=== PATIENT | female | born 1975 | race Caucasian/White ===

== ENCOUNTER 2025-04-29 00:55 | Emergency (ER) | payer BC, SELFPAY ==
--- OUTSIDE RECORDS SUMMARY | 2022-08-07 09:01 | XMS_ITS | Continuity of Care Document ---
Author Organization [facility] Address [address] [address] [place] [address] Phone Care Team Providers Care Field Party Manager Name Role Phone Skyla Pena CRNA Unavai lable Allergies, Adverse Reactions, Alerts Substance Reaction Status Criticality No Known Allergies Active No Inform ation WARNIN allergy(ies) could not be collected because the type is not supported. Please contact the source practice for further details. Medications Medication Instructions Dosage Effective Dates (start - stop) Status Comments ProAir HFA 90 mcg/actuation Aerosol Inhaler inhale 2 puff by inhalation route every 4 - 6 hours as needed - Active Zyrtec 10 mg tablet as needed - Active escitalopram 10 mg tablet take 1 tablet by oral route every day 10 MG - No Longer Active bupropion HCl XL 150 mg 24 hr tablet, extended release take 1 tablet by oral route every day 150 MG - No Longer Active Procedures Procedure Date Colonoscopy Flex; W/remov Les- Colonoscopy Flex; W/bx 1/mx Level Iv-surg Path Gross/micro Colonoscopy Flex; Dx (sep Pro) Colonoscopy Flex; W/remov Les- 15 Level Iv-surg Path Gross/micro [address]; Hg & Platelet Ct Autom 13 Thyroid Stim Hormone Offic Cons New/estab Mod Routine Serum Collection Advance Directives Directive Yes / No Effective Date File Name No Information Encounters Encounter Description Practice Location Reason(s) For Visit Diagnoses Date Provider Providers Copied on Encounter [facility], [address] [address], [place], [place], [id number], [place] tel:[phone] [facility] No Information 3 Becky ABERNATHY Skyla. [address] [facility], [facility] [address], [place], [id number], [place]. tel:[phone] Referring Provider: Kaye Anand MD, [address] [facility], [facility] [place], [address] . tel:[phone] [facility] [place], [address] [address], [place], [place], [id number], [place] tel:[phone] [facility] GI Symptoms or Concerns (chief complaint) Personal history of colonic polypsColorectal polyp detected on colonoscopyEncoun ter for screening for malignant neoplasm of colonBenign neoplasm of transverse colonBenign neoplasm of rectum 3 Cheng Restrepo. [address] [facility], [address], [id number], [place]. tel:[phone] Referring Provider: Referral Self, USE FOR SELF REFERRALS. [facility] [place], [address] [address], [facility], [id number], [place] tel:[phone] [facility] No Information 3 Dixon Zuniga. [address] [facility], [facility] [address], [place], [id number], [place]. tel:[phone] [facility], [address] [address], [place], [id number], [place] tel:[phone] [facility] History of adenomatous polyp of colonEncounter for screening for malignant neoplasm of colonFamily history of colonic polypsPersonal history of colonic polyps 0 Skip Osborn. [address] [facility], [facility] [address], [place], [id number], [place]. tel:[phone] Referring Provider: [place], [address] [place], [address]. tel:[phone] [facility], [address] [address], [place], [place], [id number], [place] tel:[phone] [facility] No Information 9 Carolina Cerda. [address], [id number], [place]. tel:[phone] [facility], [address] [address], [place], [id number], [place] tel:[phone] [facility] Colon polypExternal hemorrhoidEncount er for screening for malignant neoplasm of colonBenign neoplasm of ascending colonFamily history of colonic polypsResidual hemorrhoidal skin tags 5 Patrick Javed. [address] [place] [address], [id number], [place]. tel:[phone] Offic Cons New/estab Mod [facility], [address] [address], [place], [place], [id number], [place] tel:[phone] [facility] Bloating (chief complaint) Change In Bowel HabitsFlatul/eruc tat/gas Pain 3 Wilmer Wise. [address] [place] [address], [id number], [place]. tel:[phone] Family History Family Member Type Diagnosis Age At Onset First degree family history Problem (finding) No history of Cancer, colon Brother Problem (finding) Alive and well Daughter Problem (finding) Alive and well Father Problem (finding) Colon polyps First degree family history Problem (finding) No history of Ulcerative Colitis Mother Problem (finding) gallbladder disease Mother Problem (finding) diverticulitis of colon Mother Problem (finding) alcoholism Daughter Problem (finding) Asthma First degree family history Problem (finding) No history of Crohn's Mother Problem (finding) asthma Mother Problem (finding) Cirrhosis Daughter Problem (finding) Alive and well First degree family history Problem (finding) Colon Polyps Daughter Problem (finding) celiac disease Mother Problem (finding) Cirrhosis Mother Problem (finding) Thyroid disorder Immunizations Vaccine Date Status Comments SARS-COV-2 (COVID-19) vaccin e, mRNA, spike protein, LNP, preservative free, 30 mcg/0.3mL dose, hany-sucrose formulation administered Note: MII C bi- directional interface ; Source: Other Registry Pneumovax 23 administered Note: [facility] bi-d irectional interface ; Source: Other Registry SARS-COV-2 (COVID-19) vaccin e, mRNA, spike protein, LNP, preservative free, 30 mcg/0.3mL dose administered Note: [facility] bi-direct ional interface ; Source: Other Registry SARS-COV-2 (COVID-19) vaccin e, mRNA, spike protein, LNP, preservative free, 30 mcg/0.3mL dose administered Note: [facility] bi-direct ional interface ; Source: Other Registry Afluria Qd administered Note: [facility] bi-directional interface ; Source: Other Registry Afluria Qd administered Note: [facility] bi-directional interface ; Source: Other Registry Fluzone Quad 6mo or older administered Note: [facility] bi-direct ional interface ; Source: Other Registry Afluria Qd administered Note: [facility] bi-directional interface ; Source: Other Registry Fluzone Quad 6mo or older administered Note: [facility] bi-direct ional interface ; Source: Other Registry Afluria Qd administered Note: [facility] bi-directional interface ; Source: Other Registry Fluzone Quad 6mo or older administered Note: [facility] bi-direct ional interface ; Source: Other Registry tetanus toxoid, reduced diphtheria toxoid, and acellular pertussis vaccine, adsorbed administered Note: [facility] b i-directional interface ; Source: Other Registry tetanus toxoid, reduced diphtheria toxoid, and acellular pertussis vaccine, adsorbed administered Note: REX dumont i-directional interface ; Source: Other Registry Payers Payer name Insurance type Covered democrat ID Authorjeremy denton(s) Vikram Cross [facility] [id number] Social History Type Description Quantity Date Captured Comments Sex Female Smoking Status No Information Chief Complaint And Reason For Visit No Information Reason For Referral Reason For Referral No Information History Of Present Illness Encounter Date Complaint History Of Prese nt Illness GI Symptoms or Concerns Functional Status Date Functional Assessmen t No Information Instructions Date Instruction Additional Infor mation Colon Polyps Related to Color ectal polyp detected on colonoscopy Diverticulosis/Diverticulitis Re lated to Colorectal polyp detected on colonoscopy High Fiber Diet Related to Color ectal polyp detected on colonoscopy Colon Cancer Prevention Related to Colorectal polyp detected on colonoscopy Hemorrhoids Related to Histo ry of adenomatous polyp of colon Colon Cancer Prevention Related to Colon polyp Colon Polyps Related to Colon polyp Hemorrhoids Related to Colon polyp High Fiber Diet Related to Colon polyp Assessments Type Assessment Date No Information Patient Care Teams Name Effective Dates (start - stop) Status Members No Information
[2025-04-29 01:00] VITALS: BP 115/74; PULSE 74; RESP 18; TEMP 36.9; O2SAT 99; BMI 24.0
--- NOTE | 2025-04-29 01:30 | CRLHL7_ITS ---
For Patients: As a result of the Cures Act, medical imaging exams and procedure reports are released immediately into your electronic medical record. You may view this report before your referring provider. If you have questions, please contact your health care provider. Indication: Pain x 10 days. Technique: Right shoulder 3 views. Comparison: None. Findings: Bones: Alignment is normal. No acute fracture or suspicious bone lesion. Joint spaces: Unremarkable. Soft tissues: 1.3 cm focus of rotator cuff calcific tendinopathy. Impression: 1. 1.3 cm focus of rotator cuff calcific tendinopathy. 2. No acute bony abnormality. Dictated by Alejandro Muñoz MD @ 04/29/2025 2:09:43 AM (Electronically Signed)
--- NOTE | 2025-04-29 01:32 | ED_ITS ---
HPI - Extremity Problem General Date Seen: 04/29/25 Chief complaint: Shoulder Injury/Pain Stated complaint: right shoulder pain Time Seen by Provider: 04/29/25 01:00 Source: patient Mode of arrival: ambulatory Limitations: no limitations History of Present Illness HPI Narrative: Patient is a 49-year-old female was in her usual state of good health until 10 or 11 days ago when she began having right shoulder pain without any specific injury. She does do a lot of driving and lifting with her right arm and thought that she had just strained it. She took some ibuprofen and has been to the chiropractor on three separate occasions. Initially it seemed like things were getting better but now for the past three days the pain is much worse. There is no neck pain. There is no radiation of pain from her neck. For the past two nights the pain has been so severe that she cannot sleep despite ibuprofen and Aleve. No previous injury to this arm. She is having difficulty finding a comf ortable position. If she supports the weight of her arm and does not move the pain is tolerable. Any movement causes severe pain. Related Data Previous Rx's ?Medication ?Instructions ?Recorded oxycodone-acetaminophen 5 mg-325 1 - 2 tab PO Q6H PRN pain #20 tabs 04/29/25 mg tablet (Percocet) Allergies Allergy/AdvReac Type Severity Reaction Status Date / Time No Known Drug Allergies Allergy Verified 04/29/25 01:01 Review of Systems Narrative: Review of systems is outlined above otherwise noted to be negative. PFSH PFSH Social History Smoking Status: Never smoker Second hand tobacco smoke exposure: No How often do you have a drink containing alcohol: never AUDIT-C Alcohol total score: 0 Non-prescribed substance use: denies use Exam Narrative: Exam Narrative: Objective: Vitals noted. No skin rashes. Full range of motion of the cervical spine. Normal neurologic exam. There are no areas of bony tenderness. She is uncomfortable over the bicep tendon but it is intact. The worst pain is lateral to that. She has severe pain with any active attempts at motion. Even with gentle passive range of motion it brings tears. Internal and external rotation are the worst movements. Forward flexion of the shoulder and the elbow are minimally tender. Const: Vital Signs, click to edit/add: Vital Signs - 24 hr 04/29/25 01:00 Temperature 98.5 F Pulse Rate [Right Pulse Oximeter] 74 Respiratory Rate 18 Blood Pressure [Ri ght Upper Arm] 115/74 Pulse Oximetry 99 Oxygen Delivery Me thod Room Air Course Course ED Course: Patient seen and examined. X-ray of the right shoulder is negative. Reevaluation(s) Reevaluation #1: We discussed options for treatment in she is given Toradol 30 mg IM and Percocet two tablets orally. She is discharged home in the care of her . Vital Signs Vital signs: Initial Vital Signs Temperature 98.5 F 04/29/25 01:00 Temperature Source Temporal Artery Scan 04/29/25 01:00 Pulse Rate 74 04/29/25 01:00 Respiratory Rate 18 04/29/25 01:00 Blood Pressure 115/74 04/29/25 01:00 Blood Pressure Mean 87 04/29/25 01:00 Blood Pressure Position Sitting 04/29/25 01:00 Pulse Oximetry 99 04/29/25 01:00 Oxygen Delivery Method Room Air 04/29/25 01:00 Vital Signs Temperature 98.5 F 04/29/25 01:00 Pulse Rate 74 04/29/25 01:00 Respiratory Rate 18 04/29/25 01:00 Blood Pressure 115/74 04/29/25 01:00 Pulse Oximetry 99 04/29/25 01:00 Oxygen Delivery Method Room Air 04/29/25 01:00 Temperature 98.5 F 04/29/25 01:00 Pulse Rate 74 04/29/25 01:00 Respiratory Rate 18 04/29/25 01:00 Blood Pressure 115/74 04/29/25 01:00 Pulse Oximetry 99 04/29/25 01:00 Oxygen Delivery Method Room Air 04/29/25 01:00 Discharge Plan Discharge Clinical Impression: Right rotator cuff tendinitis Patient Disposition: Home, Self-Care Condition: Improved Instructions: Rotator Cuff Tendinitis (ED) Additional Instructions: Rest, ice, sling if needed, ibuprofen 800 mg 3 times daily with food. Percocet 1-2 every 6 hours as needed for refractory pain. Follow-up with your PCP next week for a recheck. Nobody buys lawrence on [employer]. Prescriptions: New oxycodone-acetaminophen [Percocet] 5-325 mg tablet 1 - 2 tab PO Q6H PRN (Reason: pain) Qty: 20 0RF Follow Up/Referrals: Provider,Not a Local [Primary Care Provider, Family Practice] Stand Alone Forms: Adimabth Info Instructions
--- OUTSIDE RECORDS SUMMARY | 2025-04-29 01:42 | XMS_ITS | Encounter Summary ---
Author Organization [place] Address [address] [place] [address] Care Team Providers Care Sheep Shearer Name Role Phone Sissy Robison MD Primary Care Provider Rut Carr APRN TOUCH UP WORKER Unavailable [phone] Valencia Mccormick DO Unavailable [phone] [facility] Unavailable [phone] Encounter Details Date Type Department Care Team (Late st Contact Info) Description 10/01/2024 [facility] Medical Advice [facility] [address], [address] [place] [address] Valencia Mccormick DO [address] [place] [address] Social History Tobacco Use Types Packs/Day Years Used Date Smoking Tobacco: Former Cigarettes 0.5 13 0 06/30/1997 - 06/30/2010 Passive Smoke Exposure: Past Smokeless Tobacco: Never Alcohol Use Standard Drinks/Week Comments Yes 0 (1 standard drink = 0.6 oz pur e alcohol) 1/2 drinks per week only Social Connection and Isolation Panel Answer Date Recorded Frequency of Communication with Friends and Fami ly Not on file 03/01/2024 How often do you get together with friends or re latives? Once a week 03/01/2024 Attends Mosque Services Not on file 03/01 Active Member of Clubs or Organizations Not on f ile 03/01/2024 Attends Club or Organization Meetings Not on romie e 03/01/2024 Marital Status Not on file 03/01/2024 PHQ-2 Answer Date Recorded PHQ-2 Score 0 08/24/2024 [facility] Occupational Stress Questionnaire Answer Date Recorded Do you feel stress - tense, restless, nervous, or anxious, or unable to sleep at night because your mind is troubled all the time - these days? Only a little 03/01/2024 Exercise Vital Sign Answer Date Recorde d On average, how many days pe r week do you engage in moderate to strenuous exercise (like a brisk walk)? 2 days 03/01/2024 On average, how many minutes do you engage in exercise at this level? 20 min 03/01/2024 Adolescent Education Answer Date Record ed Getting School Help Needed Not on file 04/09 Food Insecurity Answer Date Recorded Within the past 12 months, d id you worry that your food would run out before you got money to buy more? No 03/01/2024 Within the past 12 months, d id the food you bought just not last and you didn t have money to get more? No 03/01/2024 Housing Stability Answer Date Recorded Do you have housing? (Rob g is defined as stable permanent housing and does not include staying outside in a car, in a tent, in an abandoned building, in an overnight nursing home, or couch-surfing.) Yes 03/02/2024 Are you worried about losing your housing? No 03/02/2024 Financial Resource Strain Answer Date R ecorded Within the past 12 months, h ave you or your family members you live with been unable to get utilities (heat, electricity) when it was really needed? No 03/01/2024 Transportation Needs Answer Date Record ed Within the past 12 months, h as lack of transportation kept you from medical appointments, getting your medicines, non-medical meetings or appointments, work, or from getting things that you need? No 03/01/2024 Interpersonal Safety Answer Date Record ed Do you feel physically and e motionally safe where you currently live? Yes 08/24/2024 Within the past 12 months, h ave you been hit, slapped, kicked or otherwise physically hurt by someone? No 08/24/2024 Within the past 12 months, h ave you been humiliated or emotionally abused in other ways by your partner or ex-partner? No 08/24/2024 Comments No Sex and Gender Information Value Date Recorded Sex Assigned at Female 05/17/2019 12:19 PM MILITARY EXCHANGE WIRELESS MANAGER Legal Sex Female 3:39 AM MILITARY EXCHANGE WIRELESS MANAGER Gender Identity Female 05/17/2019 12:19 PM MILITARY EXCHANGE WIRELESS MANAGER Sexual Orientation Straight 05/17/2019 12 :19 PM MILITARY EXCHANGE WIRELESS MANAGER documented as of this encounter Plan of Treatment Not on file documented as of this encounter Visit Diagnoses Not on filedocumented in this encounter Additional Health Concerns Assessment Noted Time PHQ-9 Depression Total Score: 5 04/11/20 9:20 AM CDT documented as of this encounter Care Teams Sheep Shearer Relationship Specialty [place] [address] [place] [address] PCP - General Family Practice 12/18/15 01/04/25 Rut Carr APRN TOUCH UP WORKER [address] [place] [address] Assigned PCP 07/06/22 Valencia Mccormick DO [address] [place] [address] Assigned Neuroscience Provider 06/21/24 Nat Nunes MD [address] [facility] [address] [place], [place] [address] Assigned Surgical Provider 09/19/24 documented as of this encounter
--- OUTSIDE RECORDS SUMMARY | 2025-04-29 01:42 | XMS_ITS | Encounter Summary ---
Author Organization [place] Address [address] [place] [address] Care Team Providers Care Manufacturing Industrial Engineer Name Role Phone Rut Carr APRN EVIDENCE TECHNICIAN Unavailable Valencia Mccormick DO Unavailable [phone] Nat Nunes MD Unavailable [phone] Reason for Visit * Reason Comments Medication Refill Encounter Details Date Type Department Care Team (Late st Contact Info) Description 04/24/2025 Refill [facility] [address] [place] [address] Rut Carr APRN EVIDENCE TECHNICIAN [address] [place] [address] Medication Refill Social History Tobacco Use Types Packs/Day Years [...] re latives? Once a week 03/01/2024 Attends Quaker Services Not on file 03/01 Active Member of Clubs or Organizations Not on f ile 03/01/2024 Attends Club or Organization Meetings Not on romie e 03/01/2024 Marital Status Not on file 03/01/2024 PHQ-2 Answer Date Recorded PHQ-2 Score 0 08/24/2024 [facility] - Occupational Stress Questionnaire Answer Date Recorded [...] in an abandoned building, in an overnight longterm, or couch-surfing.) Yes 03/02/2024 Are you worried [...] Sex Assigned at Female 05/17/2019 12:19 PM RADIATOR MECHANIC Legal Sex Female 3:39 AM RADIATOR MECHANIC Gender Identity Female 05/17/2019 12:19 PM RADIATOR MECHANIC Sexual Orientation Straight 05/17/2019 12 :19 PM RADIATOR MECHANIC documented as of this encounter Miscellaneous Notes * Telephone Encounter - Mark Siegel RN - 04/25/2025 9:08 AM CDT [place] refill sent. Needs appointment, note sent to pharmacy to inform patient per protocol. documented in this encounter Plan of Treatment Not on file documented as of this encounter Visit Diagnoses Diagnosis Mild intermittent asthma without complication Unspecified asthma Seasonal allergic rhinitis due to pollen documented in this encounter Additional Health Concerns Assessment Noted Time PHQ-9 Depression Total Score: 5 04/11/20 25 9:20 AM CDT documented as of this encounter Care Teams Manufacturing Industrial Engineer Relationship Specialty Start Date End Date Rut Carr APRN CNP [address] [place] [address] Assigned PCP 07/06/22 Valencia Mccormick DO [address] [place] [address] Assigned Neuroscience Provider 06/21/24 [facility] [address] [facility] [address] [place] [address] Assigned Surgical Provider 09/19/24 documented as of this encounter
--- OUTSIDE RECORDS SUMMARY | 2025-04-29 01:42 | XMS_ITS | Encounter Summary ---
Author Organization [place] Address [address] [place] [address] Care Team Providers Care Lawn Care Technician Name Role Phone Sissy Robison MD Primary Care Provider + Rut Carr APRN RADIATION THERAPIST Unavailable + Sissy Robison MD Unavailable + Rut Carr APRN RADIATION THERAPIST Unavailable + Sissy Robison MD Unavailable + Cristina Ace DO Unavailable [phone] Rut Carr APRN RADIATION THERAPIST Unavailable + Sissy Robison MD Unavailable + Alejandro Grimes DPM Unavailable [phone] Rut Carr APRN RADIATION THERAPIST Unavailable + Alejandro Grimes DPM Unavailable + [phone] Valencia Mccormick DO Unavailable [phone] Nat Nunes MD Unavailable [phone] Encounter Details Date Type Department Care Team (Late st Contact Info) Description 05/02/2017 [facility] [address] [id number] Xenia Flores Patel Social History Tobacco Use Types Packs/Day Years Used Date Smoking Tobacco: Never Smokeless Tobacco: Never Alcohol Use Standard Drinks/Week Comments Yes 0 (1 standard drink = 0.6 oz pur e alcohol) occasionally Comments No Sex and Gender Information Value Date Recorded Sex Assigned at Female 05/17/2019 12:19 PM BRAKE LINER Legal Sex Female 3:39 AM BRAKE LINER Gender Identity Female 05/17/2019 12:19 PM BRAKE LINER Sexual Orientation Straight 05/17/2019 12 :19 PM BRAKE LINER documented as of this encounter Plan of Treatment Not on file documented as of this encounter Visit Diagnoses Not on filedocumented in this encounter Additional Health Concerns Assessment Noted Time PHQ-9 Depression Total Score: 1 07/30/19 17 7:12 AM BRAKE LINER documented as of this encounter Care Teams Lawn Care Technician Relationship Specialty [place] [address] [address] [address] PCP - General Family Practice 12/18/15 01/04/25 Rut Carr APRN RADIATION THERAPIST [address] [address] [address] PCP - Assigned PCP 05/03/18 09/01/18 [place] [address] [address] [address] PCP - Assigned PCP 03/29/18 05/02/18 Rut Carr APRN RADIATION THERAPIST [address] [address] [address] Assigned PCP 05/03/18 10/30/19 [place] [address] [address] [address] Assigned PCP 10/31/19 10/14/20 Cristina Ace DO [address] [place] [address] Assigned OBGYN Provider 04/21/20 2/08/29 3 Rut Carr APRN RADIATION THERAPIST [address] [place] [address] Assigned PCP 10/15/20 01/11/21 [place] [address] [place] [address] Assigned PCP 01/12/21 07/05/22 Alejandro Grimes DPM [address] [place] [address] Assigned Musculoskeletal Provider 04/29/21 08/02/22 Rut Carr APRN RADIATION THERAPIST [address] [place] [address] Assigned PCP 07/06/22 Alejandro Grimes DPM [address] [place], [place] [address] Assigned Surgical Provider 08/03/22 Valencia Mccormick DO [address] [place], [place] [address] Assigned Neuroscience Provider 06/21/24 Nat Nunes MD [address] [place], [place] [address] Assigned Surgical Provider 09/19/24 documented as of this encounter
--- OUTSIDE RECORDS SUMMARY | 2025-04-29 01:43 | XMS_ITS | Encounter Summary ---
Author Organization [facility] Address [address] [place] [address] Care Team Providers Care Merchandise Handler Name Role Phone Sissy Robison MD Primary Care Provider + Rut Carr APRN CUSTOMER CONSULTANT Unavailable + Sissy Robison MD Unavailable + Cristina Ace DO Unavailable [phone] Rut Carr APRN CUSTOMER CONSULTANT Unavailable + Sissy Robison MD Unavailable + Alejandro Grimes DPM Unavailable + [phone] Rut Carr APRN CUSTOMER CONSULTANT Unavailable + CornelioAlejandro galan DPM Unavailable + [phone] Valencia Mccormick DO Unavailable [phone] Nat Nunes MD Unavailable [phone] Encounter Details Date Type Department Care Team (Late st Contact Info) Description 09/17/2018 MyC Medical Advice [facility] [address] [facility], [address] [place] [address] Hilary Moya, DIMITRY Social History Tobacco Use Types Packs/Day Years Used Date Smoking Tobacco: Never Smokeless Tobacco: Never Alcohol Use Standard Drinks/Week Comments Yes 0 (1 standard drink = 0.6 oz pur e alcohol) occasionally PHQ-2 Answer Date Recorded PHQ-2 Score 0 07/07/2018 Comments No Sex and Gender Information Value Date Recorded Sex Assigned at Female 05/17/2019 12:19 PM ELECTRONICS UTILITY WORKER Legal Sex Female 3:39 AM ELECTRONICS UTILITY WORKER Gender Identity Female 05/17/2019 12:19 PM ELECTRONICS UTILITY WORKER Sexual Orientation Straight 05/17/2019 12 :19 PM ELECTRONICS UTILITY WORKER documented as of this encounter Plan of Treatment Not on file documented as of this encounter Visit Diagnoses Not on filedocumented in this encounter Additional Health Concerns Assessment Noted Time PHQ-9 Depression Total Score: 0 09/19/19 19 7:06 AM CDT documented as of this encounter Care Teams Merchandise Handler Relationship Specialty [place] [id number] [address] [address] PCP - General Family Practice 12/18/15 01/04/25 Rut Carr APRN CUSTOMER CONSULTANT [address] [address] [address] Assigned PCP 05/03/18 10/30/19 [place] [address] [address] [address] Assigned PCP 10/31/19 10/14/20 Cristina Ace DO [address] [place] [address] Assigned OBGYN Provider 04/21/20 3 Rut Carr APRN CUSTOMER CONSULTANT [address] [address] [address] Assigned PCP 10/15/20 01/11/21 [place] [address] [place] [address] Assigned PCP 01/12/21 07/05/22 Ale[place] Grimes DPM [address] [place] [address] Assigned Musculoskeletal Provider 04/29/21 08/02/22 Rut Carr APRN CUSTOMER CONSULTANT [address] [place] [address] Assigned PCP 07/06/22 Alejandro Grimes DPM [address] [place] [address] Assigned Surgical Provider 08/03/22 Valencia Mccormick DO [address] [place], [place] [address] Assigned Neuroscience Provider 06/21/24 Nat Nunes MD [address] [facility] [address] [place], [place] [address] Assigned Surgical Provider 09/19/24 documented as of this encounter
--- OUTSIDE RECORDS SUMMARY | 2025-04-29 01:43 | XMS_ITS | Encounter Summary ---
Author Organization [facility] Address [address] [place] [address] Care Team Providers Care Legal Technician Name Role Phone Sissy Robison MD Primary Care Provider Rut Carr APRN NUCLEAR ENGINEER Unavailable [phone] Valencia Mccormick DO Unavailable [phone] Nat Nunes MD Unavailable [phone] Encounter Details Date Type Department Care Team (Late st Contact Info) Description 10/30/2023 MyC Medical Advice [address] [address] Gladys Haley Social History Tobacco Use Types Packs/Day Years Used Date Smoking Tobacco: Former Cigarettes 0.5 13 0 06/30/1997 - 06/30/2010 Smokeless Tobacco: Never Alcohol Use Standard Drinks/Week Comments Yes 0 (1 standard drink = 0.6 oz pur e alcohol) 1/2 drinks per week only PHQ-2 Answer Date Recorded PHQ-2 Score 0 10/24/2023 Adolescent Education Answer Date Record ed Getting School Help Needed Not on file 04/09 Comments No Sex and Gender Information Value Date Recorded Sex Assigned at Female 05/17/2019 12:19 PM DECISION SUPPORT ANALYST Legal Sex Female 3:39 AM DECISION SUPPORT ANALYST Gender Identity Female 05/17/2019 12:19 PM DECISION SUPPORT ANALYST Sexual Orientation Straight 05/17/2019 12 :19 PM DECISION SUPPORT ANALYST documented as of this encounter Plan of Treatment Not on file documented as of this encounter Visit Diagnoses Not on filedocumented in this encounter Additional Health Concerns Assessment Noted Time PHQ-9 Depression Total Score: 5 04/11/20 25 9:20 AM CDT documented as of this encounter Care Teams Legal Technician Relationship Specialty [place] [address] [place] [address] PCP - General Family Practice 12/18/15 01/04/25 Rut Carr APRN NUCLEAR ENGINEER [address] [address] [address] Assigned PCP 07/06/22 Valencia Mccormick DO [address] [place], [place] [address] Assigned Neuroscience Provider 06/21/24 Nat Nunes MD [address] [facility] [address] [place], [place] [address] Assigned Surgical Provider 09/19/24 documented as of this encounter
--- OUTSIDE RECORDS SUMMARY | 2025-04-29 01:43 | XMS_ITS | Encounter Summary ---
Author Organization [facility] Address [address] [place] [address] Care Team Providers Care Automobile Or Truck Rental Dispatcher Name Role Phone Sissy Robison MD Primary Care Provider + Rut Carr APRN GOLF BALL TRIMMER Unavailable + Sissy Robison MD Unavailable + Cristina Ace DO Unavailable [phone] Rut Carr APRN GOLF BALL TRIMMER Unavailable + Sissy Robison MD Unavailable + Alejandro Grimes DPM Unavailable + [phone] Rut Carr APRN GOLF BALL TRIMMER Unavailable + CornelioAlejandro galan DPM Unavailable + [phone] Valencia Mccormick DO Unavailable [phone] Nat Nunes MD Unavailable [phone] Encounter Details Date Type Department Care Team (Late st Contact Info) Description 05/11/2019 MyC Medical Advice [address] [id number] Flores Michaels Social History Tobacco Use Types Packs/Day Years Used Date Smoking Tobacco: Never Smokeless Tobacco: Never Alcohol Use Standard Drinks/Week Comments Yes 0 (1 standard drink = 0.6 oz pur e alcohol) occasionally PHQ-2 Answer Date Recorded PHQ-2 Score 0 07/07/2018 Comments No Sex and Gender Information Value Date Recorded Sex Assigned at Female 05/17/2019 12:19 PM PRODUCTION ESTIMATOR Legal Sex Female 3:39 AM PRODUCTION ESTIMATOR Gender Identity Female 05/17/2019 12:19 PM PRODUCTION ESTIMATOR Sexual Orientation Straight 05/17/2019 12 :19 PM PRODUCTION ESTIMATOR documented as of this encounter Plan of Treatment Not on file documented as of this encounter Visit Diagnoses Not on filedocumented in this encounter Additional Health Concerns Assessment Noted Time PHQ-9 Depression Total Score: 0 09/19/19 19 7:06 AM CDT documented as of this encounter Care Teams Automobile Or Truck Rental Dispatcher Relationship Specialty [place] [address] [address] [address] PCP - General Family Practice 12/18/15 01/04/25 Rut Carr APRN GOLF BALL TRIMMER [address] [address] [address] Assigned PCP 05/03/18 10/30/19 [place] [address] [address] [address] Assigned PCP 10/31/19 10/14/20 Cristina Ace DO [address] [place] [address] Assigned OBGYN Provider 04/21/20 3 Rut Carr APRN GOLF BALL TRIMMER [address] [address] [address] Assigned PCP 10/15/20 01/11/21 [place] [address] [place] [address] Assigned PCP 01/12/21 07/05/22 Alejandro Grimes DPM [address] [place] [address] Assigned Musculoskeletal Provider 04/29/21 08/02/22 Rut Carr APRN GOLF BALL TRIMMER [address] [place] [address] Assigned PCP 07/06/22 Alejandro Grimes DPM [address] [place] [address] Assigned Surgical Provider 08/03/22 Valencia Mccormick DO [address] [place], [place] [address] Assigned Neuroscience Provider 06/21/24 Nat Nunes MD [address] [facility] [address] [place], [place] [address] Assigned Surgical Provider 09/19/24 documented as of this encounter
--- OUTSIDE RECORDS SUMMARY | 2025-04-29 01:43 | XMS_ITS | Encounter Summary ---
Author Organization [facility] Address [address] [place] [address] Care Team Providers Care Acetylene Operator Name Role Phone Sissy Robison MD Primary Care Provider + Rut Carr APRN INTELLECTUAL PROPERTY COUNSEL Unavailable + Sissy Robison MD Unavailable + Rut Carr APRN INTELLECTUAL PROPERTY COUNSEL Unavailable + Sissy Robison MD Unavailable + Cristina Ace DO Unavailable [phone] Rut Carr APRN INTELLECTUAL PROPERTY COUNSEL Unavailable + Sissy Robison MD Unavailable + Alejandro Grimes DPM Unavailable + [phone] Rut Carr APRN INTELLECTUAL PROPERTY COUNSEL Unavailable + Alejandro Grimes DPM Unavailable + [phone] Valencia Mccormick DO Unavailable [phone] Nat Nunes MD Unavailable [phone] Encounter Details Date Type Department Care Team (Late st Contact Info) Description 02/18/2018 [facility] [address] [phone] Rayna Melton Social History Tobacco Use Types Packs/Day Years Used Date Smoking Tobacco: Never Smokeless Tobacco: Never Alcohol Use Standard Drinks/Week Comments Yes 0 (1 standard drink = 0.6 oz pur e alcohol) occasionally Comments No Sex and Gender Information Value Date Recorded Sex Assigned at Female 05/17/2019 12:19 PM JORDAN WORKER Legal Sex Female 3:39 AM JORDAN WORKER Gender Identity Female 05/17/2019 12:19 PM JORDAN WORKER Sexual Orientation Straight 05/17/2019 12 :19 PM JORDAN WORKER documented as of this encounter Plan of Treatment Not on file documented as of this encounter Visit Diagnoses Not on filedocumented in this encounter Additional Health Concerns Assessment Noted Time PHQ-9 Depression Total Score: 1 07/30/19 17 7:12 AM JORDAN WORKER documented as of this encounter Care Teams Acetylene Operator Relationship Specialty [place] [address] [address] [address] PCP - General Family Practice 12/18/15 01/04/25 Rut Carr APRN INTELLECTUAL PROPERTY COUNSEL [address] [address] [address] PCP - Assigned PCP 05/03/18 09/01/18 [place] [address] [address] [address] PCP - Assigned PCP 03/29/18 05/02/18 Rut Carr APRN INTELLECTUAL PROPERTY COUNSEL [address] [address] [address] Assigned PCP 05/03/18 10/30/19 [place] [address] [address] [address] Assigned PCP 10/31/19 10/14/20 Cristina Ace DO [address] [place] [address] Assigned OBGYN Provider 04/21/20 2/08/29 3 Rut Carr APRN INTELLECTUAL PROPERTY COUNSEL [address] [place] [address] Assigned PCP 10/15/20 01/11/21 [place] [address] [place] [address] Assigned PCP 01/12/21 07/05/22 [place] [address] [place] [address] Assigned Musculoskeletal Provider 04/29/21 08/02/22 Rut Carr APRN INTELLECTUAL PROPERTY COUNSEL [address] [place] [address] Assigned PCP 07/06/22 Alejandro Grimes DPM [address] [place], [place] [address] Assigned Surgical Provider 08/03/22 Valencia Mccormick DO [address] [place], [place] [address] Assigned Neuroscience Provider 06/21/24 Nat Nunes MD [address] [place], [place] [address] Assigned Surgical Provider 09/19/24 documented as of this encounter
--- OUTSIDE RECORDS SUMMARY | 2025-04-29 01:43 | XMS_ITS | Clinical Summary ---
Author Organization [facility] Address [address] [place] [address] Care Team Providers Care Product Safety Consultant Name Role Phone [facility] Primary Care Provider Allergies No known active allergies Medications ZYRTEC 10 MG TAB take 1 tablet (10 mg) by oral route once daily 0 9 Active multivitamin (MVI) tablet Take 1 tablet by mouth once daily. 0 0 Active albuterol HFA (PROAIR HFA) 90 mcg/actuation inhalerIndication s:Unspecified asthma(493.90) Inhale 1 Puff by mouth every 4 hours if needed. 1 Inhaler 4 2 Active albuterol-ipratro pium (DUONEB) (2.5-0.5 mg) in 3 mL NEBULIZATION solutionIndicatio ns:Asthma exacerbation, unspecified asthma severity Inhale 3 mL via a nebulizer 4 times daily if needed for Shortness Of Breath or Wheezing. 1 box 0 5 Active NebulizerIndicati ons:Asthma exacerbation, unspecified asthma severity Nebulizer, neb kit, neb cup and mask. Medication: Duo neb For home use. 1 Device 0 5 Active FLUoxetine (PROZAC) 10 mg capsuleIndication s:PMS (premenstrual syndrome) TAKE 1 CAPSULE BY MOUTH EVERY MORNING 90 capsule 1 6 Active Active Problems Problem Noted Date Diagnosed Date Moderate cervical dysplasia, histologically conf irmed 03/19/2015 Overview (04/07/2015): LEEP done 08/19/14: path showed left LEEP- CIN2 with endocervical margin + for CIN1 at 3-6:00, right LEEP with CIN1, margins negative and ECC negative. 03/17/2015 NIL pap & [place]: negative biopsy, insufficient ECC Plan per provider: Plan: 1. Repeat Pap with HPV and ECC in 6 months. Routine general medical exam ination at a health care facility 06/10/2009 Overview (09/04/2012): Pap: 11/2006 ascus; 04/2007 epithelial cell abnormality; 08/04/2008-neg, 04/03/2010- neg Pap 04/09 LSIL and no colpo done; Pap LSIL 04/10; colpo done 04/28/12 and was normal and ECC negative. Last Mammo: normal 04/09 Last Colonoscopy: never Last Dexa: never Last Lipids: 2005 Unspecified asthma(493.90) 06/10/2009 Seasonal allergies 06/10/2009 Other acne 02/16/2009 Overview (06/10/2009): On ceftin daily Immunizations Immunization Administration Dates Next Due Influenza, IIV3 (Age >=3 years) 04/15/2012,04/10,04/03/2010 Influenza, IIV4 04/08/2014 Tdap 04/08/2014,12/20/2005 Family History Medical History Relation Name Comments Other Father precancerous co lazaro polyps age 45 Diabetes Maternal Grandmother Diabetes Mother Cancer-colon Paternal Uncle age at dx 50 Cancer-breast Other MATERNAL GREAT GM at age 70 Cancer-ovarian No Family History Relation Name Status Comments Father Maternal Grandmother Mother Paternal Uncle Other MATERNAL GREAT GM Social History Tobacco Use Types Packs/Day Years Used Date Smoking Tobacco: Never Smokeless Tobacco: Never Alcohol Use Standard Drinks/Week Comments No 0.8 (1 standard drink = 0.6 oz p ure alcohol) occ Comments No Sex and Gender Information Value Date Recorded Sex Assigned at Not on file Legal Sex Female 7:34 AM RING SPINNER Gender Identity Not on file Sexual Orientation Not on file Occupation Industry Job Start Date Job End Date SALES Not on file Not on file Not on file Not on file Not on file Not on file Not on file Obstetrics History Para Term AB IAB SAB Ectopic Multiple Livin g Live Births 3 3 3 4 3 Date Outcome GA Total Labor Labor/2nd/3rd Weight Sex Type Anes PTL Ruba A1 A5 Name Clin 2000 Term 40w 0d 3.12 kg (6 lb 14 oz) F Vag-S pont Livin g Heike Vivas l Delivery Location:[facility] 2003 Term 40w 0d 3.18 kg (7 lb) F Vag-S pont Livin g Payton Ho Delivery Location:[facility] 2013 Term 37w 1d 3.43 kg (7 lb 9 oz) F Vag Livin g 9 9 [place] Delivery Location:[facility] Comments Stepdaughter born 2000- Juany ey Last Filed Vital Signs Vital Sign Reading Time Taken Comments Blood Pressure 120/60 03/17/2015 3:14 PM CDT Pulse 96 11/03/2014 9:01 AM CDT Temperature 36.6 C (97.8 F) 11/03/2014 9:01 AM CDT Respiratory Rate 18 11/03/2014 9:01 AM CDT Oxygen Saturation 99% 11/03/2014 9:01 AM CDT Inhaled Oxygen Concentration - - Weight 65.3 kg (144 lb) 03/17/2015 3:14 PM CDT Height 167 cm (5' 5.75) 10/27/2014 2:36 PM CDT Body Mass Index 23.42 10/27/2014 2:36 PM CDT Plan of Treatment Health Maintenance Due Date Last Done Comments Depression screening for age 12+ 1986 BMI (ht and wt on same day) for age 18+ 1992 Hepatitis C screening for ag e 18-79 1992 Hepatitis B series for 19+ ( 1 of 3 - 19+ 3-dose series) 1993 Pap test for age 21-65 03/17/2018 5, 06/27/2014, 06/27/2014, Additional history exists Lipids for age 45-75 09/20/2019 04/10/2011 Mammogram for age 45-75 09/20/2019 07/30/2013, 04/17 Tetanus booster 04/08/2024 04/08/2014, 12/20/2005 Pneumococcal series for age 50+ (1 of 1 - PCV) 2024 Zoster (shingles) series for age 50+ (1 of 2) 2024 Influenza Vaccine (#1) 2025 4, 04/15/2012, 04/10/2011, Additional history exists Colonoscopy through age 75 05/05/2025 05/05/2015 RSV vaccine for adults or (1 - 1-dose 75+ series) 2049 HIV for age 15-65 Completed 10/26/2013 Procedures Procedure Name Priority Date/Time Associated Diagnosis Comments SCAN-COLONOSCOPY 05/05/2015 1:30 PM RING SPINNER MARINE FIRE FIGHTER THIN PREP PAP DIAGNOSTIC IMAGED Routine 03/17/2015 4:14 PM CDT Severe cervical dysplasia, histologically confirmed ANTI HIV 1/2 Routine 10/26/2013 10:47 AM CDT AMA (advanced maternal age) multigravida 35+ (HC) XR MAMMO BILAT DIAG FFDM (IA) Routine 07/30/2013 10:38 AM RING SPINNER Breast lump Breast pain LDL CHOLESTEROL,DIRECT Routine 04/10/2011 11:26 AM CDT Healthcare maintenance from Last 3 Months or Most Recently Relevant to Health Maintenance Results * SCAN-COLONOSCOPY (05/05/2015 1:30 PM RING SPINNER) Narrative Transcriptions Tello Nguyen MD - 05/05/2015 12:42 PM CST [facility] [address], [address], [place] [address] Patient Name: Jessica Sanchez Gender: Female Exam Date: 05/05/2015 Visit Number: [id number] Age: 39 Years Date of : 1975 Attending MD: Tello Nguyen MD Medical Record#: [id number] ----- Procedure: Colonoscopy Indications: Family history of polyps in patient's father. Agediagnosed: 50-59. Referring MD: Amaris Ho MD Primary MD: Amaris Ho MD Medications: Intra Procedure Medications: Received MAC sedation per anesthesia provider Complications: Procedure: An examination of the heart and lungs was performed and found to be withinacceptable limits. The patient was therefore deemed a reasonablecandidate for endoscopy and {cons_sedation: Unexpected Value} sedation. The risks and benefits of the procedure were explained to the patient.After obtaining informed consent, MAC sedation was administered peranesthesia provider and I passed the scope without difficulty via the rectum to the cecum. The appendiceal orificeand ic valve were identified. The scope was retroflexed during theexamination The quality of the prep was excellent (Miralax/Gatorade/2tablets Bisacodyl/Magnesium Citrate). This was a complete examination throughout the entire colon. Findings: Polyp location: ascending colon. Quantity: 1. Size: 11-15 mm. Polypshape: sessile. Maneuver: polypectomy was performed with a hot snare. Removal: complete. Retrieval: complete. Bleeding: none. Hemorrhoids. External hemorrhoids without bleeding. Remainder of the exam is normal. Impression: Colon polyp External hemorrhoid Pathology Results: A: COLON, ASCENDING, POLYP: 1. Sessile serrated adenoma (see comment) 2. No overt dysplasia present 3. Per the attached endoscopy report: a. Polyp size: 11-15mm b. Resection: Complete c. Retrieval: Complete MICROSCOPIC A: Performed Electronically signed by: Guille Bay MD Given the size of this polyp, I would recommend repeat colonoscopy in 3years. Final Plan: Return for a colonoscopy in 3 years. We will attempt to contact you at appropriate intervals via U.S. mail. Wemay not be able to find you or contact you at that time, therefore youshould know that the responsibility for following our recommendation restswith you. If you don't hear from us at the time your procedure is due,please contact our office to schedule an appointment. If your contactinformation should change, please contact our office so that we can updateyour record. Plan Comments: Recommendation Comments: In 3 years if adenomatous polyp, 5 years (2/2family history) if benign. Additional Comments: Given the size of this polyp, I would recommend repeat colonoscopy in 3years. _Electronically signed by: Tello Nguyen MD 05/05/2015 Tello Nguyen MD OTHER Arely l Result * MARINE FIRE FIGHTER THIN PREP PAP DIAGNOSTIC IMAGED (03/17/2015 4:14 PM CDT) MARINE FIRE FIGHTER CYTOLOGY See Anatomic Pathology case 03/22/2015 5:01 PM CDT [facility] The Local [facility] Specimen (specimen) (Cervical/Vagina l) Non-Blood / Unknown 03/17/2015 4:14 PM CDT 03/17/2015 4:14 PM CDT us Amaris Ho MD PATHOLOGY/CYTOLOGY Final Res ult [facility] [address] [place] [address], * ANTI HIV 1/2 (10/26/2013 10:47 AM CDT) HIV-1/HIV-2 ANTIBODY Non-Reacti ve Non-Reacti ve 10/26/2013 7:23 PM CDT [facility] The Local [facility] Blood specimen (specimen) BLOOD SPECIMEN / Unknown Venipuncture / Unknown 10/26/2013 10:47 AM CDT 10/26/2013 10:47 AM CDT Narrative [facility] - 10/26/2013 7:23 PM CDT HIV-1 p24 and HIV-1/HIV-2 Ab not detected us Skyla Hansen NP SEND OUTS Final Re sult [facility] [address] [place] [address], [place] * XR MAMMO BILAT DIAG FFDM (07/30/2013 10:38 AM RING SPINNER) Anatomical Region Laterality Modality BREASTS, Breast Left, Breast Right Bilateral Mammography Impressions 07/30/2013 3:00 PM RING SPINNER 1. No evidence of malignancy. 2. The palpable area of concern in the LEFT breast at the 2 o'clock position, 6 cm from the nipple, corresponds to two adjacent cysts which were aspirated completely with ultrasound guidance. RECOMMENDATION: Recommend annual screening mammography beginning at age 40. ACR 2 Benign Finding(s) Candace Ann M.D. Breast/Diagnostic Radiologist [email or web address] DANNY:silvia Narrative 07/30/2013 3:00 PM RING SPINNER BILATERAL DIGITAL DIAGNOSTIC MAMMOGRAM WITH COMPUTER-AIDED DETECTION, 07/30/2013 LEFT BREAST ULTRASOUND WITH ULTRASOUND-GUIDED CYST ASPIRATION, 07/30/2013 CLINICAL HISTORY: 37-year-old woman with tender palpable lump in upper outer quadrant of the LEFT breast, initially discovered by the patient and confirmed on clinical breast exam performed by her physician. COMPARISON: Bilateral mammogram 04/17/2011. TECHNIQUE: These mammographic images have been obtained using digital technique and interpreted with computer-aided detection. FINDINGS: The breast tissue is extremely dense, greater than 75% glandular, which decreases the sensitivity of mammography. No discrete mammographic abnormality is identified in the upper outer quadrant of the LEFT breast in the region of clinical concern indicated by a triangular marker. No suspicious findings are seen in the RIGHT breast. Ultrasound targeted to the palpable area of concern at the 2 o'clock position, 6 cm from the nipple, demonstrates two adjacent cysts. One of these cysts is simple in appearance and measures 2.0 x 1.9 x 1.3 cm. The second adjacent cyst contains thin septations and measures 1.9 x 1.3 x 0.9 cm. ULTRASOUND-GUIDED CYST ASPIRATION: Using ultrasound guidance, a 22-gauge needle was passed into the two cysts in the 2 o'clock position 6 cm from the nipple, and both cysts resolved completely, yielding a total of 3 mL of yellow-colored benign cyst fluid. Procedure Note Candace Ann MD - 07/30/2013 BILATERAL DIGITAL DIAGNOSTIC MAMMOGRAM WITH COMPUTER-AIDED DETECTION,07/30/2013 LEFT BREAST ULTRASOUND WITH ULTRASOUND-GUIDED CYST ASPIRATION, 07/30/2013 CLINICAL HISTORY: 37-year-old woman with tender palpable lump in upperouter quadrant of the LEFT breast, initially discovered by the patient andconfirmed on clinical breast exam performed by her physician. COMPARISON: Bilateral mammogram 04/17/2011. TECHNIQUE: These mammographic images have been obtained using digitaltechnique and interpreted with computer-aided detection. FINDINGS: The breast tissue is extremely dense, greater than 75%glandular, which decreases the sensitivity of mammography. No discretemammographic abnormality is identified in the upper outer quadrant of theLEFT breast in the region of clinical concern indicated by a triangularmarker. No suspicious findings are seen in the RIGHT breast. Ultrasound targeted to the palpable area of concern at the 2 o'clockposition, 6 cm from the nipple, demonstrates two adjacent cysts. One ofthese cysts is simple in appearance and measures 2.0 x 1.9 x 1.3 cm. Thesecond adjacent cyst contains thin septations and measures 1.9 x 1.3 x 0.9cm. ULTRASOUND-GUIDED CYST ASPIRATION: Using ultrasound guidance, a 22-gaugeneedle was passed into the two cysts in the 2 o'clock position 6 cm fromthe nipple, and both cysts resolved completely, yielding a total of 3 mLof yellow-colored benign cyst fluid. IMPRESSION: 1. No evidence of malignancy. 2. The palpable area of concern in the LEFT breast at the 2 o'clockposition, 6 cm from the nipple, corresponds to two adjacent cysts whichwere aspirated completely with ultrasound guidance. RECOMMENDATION: Recommend annual screening mammography beginning at age40. ACR 2 Benign Finding(s) Candace Ann M.D. Breast/Diagnostic Radiologist [email or web address] DANNY:silvia us Skyla Hansen NEONATAL CRITICAL CARE NURSE MAMMO Final Re sult * LDL CHOLESTEROL,DIRECT (04/10/2011 11:26 AM CDT) LDL CHOLESTEROL,D IRECT 62 Undefined mg/dL [facility] Comment: RISK CATEGORY LDL GOAL (mg/dL) Vascular disease and/or diabetes (<100) Multiple (2+) risk factors (<130) 0-1 risk factor (<160) Blood specimen (specimen) BLOOD SPECIMEN / Unknown 04/10/2011 11:26 AM CDT 04/10/2011 11:18 AM CDT Anamaria Pagan CHEMISTRY Final Result [facility] [place]NAL ZIP [address] [place] [id number] from Last 3 Months or Most Recently Relevant to Health Maintenance Insurance [employer] Advance Directives * Full Code (Latest Code Status on File) Date Activated Date Inactivated Comments 05/15/2014 3:44 AM 05/16/2014 2:04 PM * Full Code Date Activated Date Inactivated Comments 05/14/2014 2:27 PM 05/15/2014 3:44 AM * Full Code Date Activated Date Inactivated Comments 05/14/2014 7:55 AM 05/14/2014 2:26 PM Care Teams Product Safety Consultant Relationship Specialty Start Date End Date [facility] [address] [place] [address] PCP - General 02/19/16
--- OUTSIDE RECORDS SUMMARY | 2025-04-29 01:43 | XMS_ITS | Encounter Summary ---
Author Organization [facility] Address [address] [place] [address] Care Team Providers Care Auto Adjudication Specialist Name Role Phone Sissy Robison MD Primary Care Provider Rut Carr APRN ADJUSTER [employer] Unavailable [phone] Valencia Mccormick DO Unavailable [phone] [facility] Unavailable [phone] Encounter Details Date Type Department Care Team (Late st Contact Info) Description 09/03/2024 [facility] Medical Advice [facility] Neurology Clinics [address], [address] [place] [address] Valencia Mccormick DO [address] [place] [address] Social History Tobacco Use Types [...] re latives? Once a week 03/01/2024 Attends Shinto Services Not on file 03/01 Active Member of Clubs or Organizations Not on f ile 03/01/2024 Attends Club or Organization Meetings Not on romie e 03/01/2024 Marital Status Not on file 03/01/2024 PHQ-2 Answer Date Recorded PHQ-2 Score 0 08/24/2024 [facility] Questionnaire Answer Date [...] in an abandoned building, in an overnight group home, or couch-surfing.) Yes 03/02/2024 Are you [...] Sex Assigned at Female 05/17/2019 12:19 PM SIMULATION SOFTWARE ENGINEER Legal Sex Female 3:39 AM SIMULATION SOFTWARE ENGINEER Gender Identity Female 05/17/2019 12:19 PM SIMULATION SOFTWARE ENGINEER Sexual Orientation Straight 05/17/2019 12 :19 PM SIMULATION SOFTWARE ENGINEER documented as of this encounter Plan of Treatment Not on file documented as of this encounter Visit Diagnoses Not on filedocumented in this encounter Additional Health Concerns Assessment Noted Time PHQ-9 Depression Total Score: 5 04/11/20 9:20 AM CDT documented as of this encounter Care Teams Auto Adjudication Specialist Relationship Specialty [place] [address] [place] [address] PCP - General Family Practice 12/18/15 01/04/25 Rut Carr APRN [employer] [address] [place] [address] Assigned PCP 07/06/22 Valencia Mccormick DO [address] [place] [address] Assigned Neuroscience Provider 06/21/24 Nat Nunes MD [address] [facility] [address] [place], [place] [address] Assigned Surgical Provider 09/19/24 documented as of this encounter
--- OUTSIDE RECORDS SUMMARY | 2025-04-29 01:43 | XMS_ITS | Encounter Summary ---
Author Organization [facility] Address [address] [place] [address] Care Team Providers Care Fitter Type Bar And Segment Name Role Phone Sissy Robison MD Primary Care Provider Rut Carr APRN ALMOND BLANCHER Unavailable [phone] Valencia Mccormick DO Unavailable [phone] [facility] MD Unavailable [phone] Encounter Details Date Type Department Care Team (Late st Contact Info) Description 07/30/2024 [facility] Medical Advice [facility] Neurology Clinics [address], [address] [place] [address] Valencia Mccormick DO [address] [place] [address] Social History Tobacco Use Types [...] re latives? Once a week 03/01/2024 Attends Druze Services Not on file 03/01 Active Member of Clubs or Organizations Not on f ile 03/01/2024 Attends Club or Organization Meetings Not on romie e 03/01/2024 Marital Status Not on file 03/01/2024 PHQ-2 Answer Date Recorded PHQ-2 Score 0 03/02/2024 [facility] - Occupational Stress Questionnaire Answer Date [...] in an abandoned building, in an overnight residential, or couch-surfing.) Yes 03/02/2024 Are you worried [...] motionally safe where you currently live? Yes 11/04/2023 Within the past 12 months, h ave you been hit, slapped, kicked or otherwise physically hurt by someone? No 11/04/2023 Within the past 12 months, h ave you been humiliated or emotionally abused in other ways by your partner or ex-partner? No 11/04/2023 Comments No Sex and Gender Information Value Date Recorded Sex Assigned at Female 05/17/2019 12:19 PM BURRING WHEEL OPERATOR Legal Sex Female 3:39 AM BURRING WHEEL OPERATOR Gender Identity Female 05/17/2019 12:19 PM BURRING WHEEL OPERATOR Sexual Orientation Straight 05/17/2019 12 :19 PM BURRING WHEEL OPERATOR documented as of this encounter Plan of Treatment Not on file documented as of this encounter Visit Diagnoses Not on filedocumented in this encounter Additional Health Concerns Assessment Noted Time PHQ-9 Depression Total Score: 5 04/11/20 25 9:20 AM CDT documented as of this encounter Care Teams Fitter Type Bar And Segment Relationship Specialty [place] [address] [place] [address] PCP - General Family Practice 12/18/15 01/04/25 Rut Carr APRN [employer]MOND BLANCHER [address] [place] [address] Assigned PCP 07/06/22 Valencia Mccormick DO [address] [place] [address] Assigned Neuroscience Provider 06/21/24 Nat Nunes MD [address] [facility] [address] [place], [place] [address] Assigned Surgical Provider 09/19/24 documented as of this encounter
--- OUTSIDE RECORDS SUMMARY | 2025-04-29 01:43 | XMS_ITS | Clinical Summary ---
Author Organization [employer] Address [address] [place] [address] Care Team Providers Care Fur Blower Operator Name Role Phone BrunoRut JAN PUBLIC WORKS TECHNICIAN Unavailable [phone] Valencia Mccormick DO Unavailable [phone] [facility] Unavailable [phone] Allergies No known active allergies Medications albuterol (PROAIR HFA/PROVENTIL HFA/VENTOLIN HFA) 108 (90 Base) MCG/ACT inhalerIndicatio ns:Mild intermittent asthma without complication Inhale 1-2 puffs into the lungs every 6 hours as needed for shortness of breath or wheezing. 18 g 3 03/02/20 24 Active montelukast (SINGULAIR) 10 MG tabletIndication s:Mild intermittent asthma without complication,[place] allergic rhinitis due to pollen TAKE 1 TABLET BY MOUTH EVERYDAY AT BEDTIME 90 tablet 04/25/20 25 Active montelukast (SINGULAIR) 10 MG tabletIndication s:Mild intermittent asthma without complication,[place] allergic rhinitis due to pollen Take 1 tablet (10 mg) by mouth at bedtime. 90 tablet 01/18/20 25 025 Discontinued Hospital, Clinic, or Other Facility Administered Medication Ordered Dose Route Frequency Start Date End Date Status lidocaine 1 % 5 mLIndications:Breast cyst, left 5 mL SC ONCE 08/25/2024 Active Active Problems Patient Care Coordination No te Formatting of this note migh t be different from the original. 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 Pap was Normal in 02/2015. 12/18/15 NIL pap, +HPV 16. Plan colp 01/22/16 [place]= Negative. Plan co-test 6 months 07/29/16 Dx pap= NIL, +HPV 16. Plan: [place] per PCP, referred to ObGyn 11/11/16 [place]--low grade changes. Plan: co-test in 6 months. 11/06/17 Patient is lost to follow-up. 12/18/17: NIL pap, +HR HPV 16 result. Plan: [place]. 05/25/18 [place] Bx--DULCE 1. Plan: co-test in 1 year. 06/03/19: NIL Pap, +HR HPV 16 result. Plan: [place]. 08/09/19: [place] Bx, ECC, and EMB Neg for dysplasia. Plan cotest in 1 year. 12/04/20 NIL, + HPV 16. Plan [place] due bef 03/06/21. 01/25/21 [place] Bx: DULCE 1, ECC: benign. Plan 1 year cotest 02/06/22 NIL pap, neg HR HPV. Plan 1 year cotest 02/28/23 NIL Pap, Neg HPV. Plan cotest in 1 year. 03/02/24 NIL Pap, Neg HPV. Plan cotest in 3 years. Resolved Problems Problem Noted Date Diagnosed Date Resolved Date Cervical pain 01/05/2016 01/15/2016 H/O colposcopy with cervical biopsy 12/18/2015 12/25/2017 Overview (12/25/2017): [facility] 2014 History of [place]/ LEEP for DULCE 2/3 in 07/2014. Pap was Normal in 02/2015. 12/18/15 Dx pap= NIL, +HPV 16. Plan colp. See LEEP problem. Encounters Date Type Department Care Team Description 04/24/2025 Refill [facility] [address] [place] [address] Rut Carr APRN PUBLIC WORKS TECHNICIAN Medication Refill from Last 3 Months Immunizations Immunization Administration Dates Next Due COVID-19 MONOVALENT 12+ (Pfizer) 11/10/2020,09/29 COVID-19 Monovalent 12+ (Pfizer 2021) 02/06/2022 Influenza (IIV3) PF 04/08/2014, 2,04/10/2011,2009 Influenza Vaccine >6 months,quad, PF ,08/03/2020,04/21/2018,2016,04/15/2016 Influenza, Split Virus, Triv alent, Pf (Fluzone\Fluarix) 08/24/2024 Pneumococcal 23 valent 12/28/2020 TDAP (Adacel,Boostrix) 08/24/2024,04/08/2014, Family History Medical History Relation Comments Anxiety Disorder Brother 3 Depression Brother 3 Anxiety Disorder Brother 4 Diabetes Maternal Grandfather Prostate Cancer Maternal Grandfather from Diabetes Maternal Grandmother Anxiety Disorder Mother Depression Mother Diabetes Mother Liver Disease Mother Substance Abuse Mother alchohol Colon Cancer Other Dad's brother-pa ssed away Emphysema Paternal Grandfather Colon Cancer Paternal Half-Sister Paternal Co lazaro Cancer Relation Status Comments Brother 1 Alive Brother 2 Alive Brother 3 Brother 4 Daughter 1 Alive Daughter 2 Alive Father Alive Maternal Grandfather Alive Maternal Grandmother Alive Mother Alive Other Paternal Grandfather Paternal Grandmother Alive Paternal Half-Sister Social History Tobacco Use Types Packs/Day Years Used Date Smoking Tobacco: Former Cigarettes 0.5 13 0 06/30/1997 - 06/30/2010 Passive Smoke Exposure: Past Smokeless Tobacco: Never Tobacco Cessation:Counseling Given: Yes Alcohol Use Standard Drinks/Week Comments Yes 0 (1 standard drink = 0.6 oz pur e alcohol) 1/2 drinks per week only Social Connection and Isolation Panel Answer Date Recorded Frequency of Communication with Friends and Fami ly Not on file 03/01/2024 How often do you get together with friends or re latives? Once a week 03/01/2024 Attends [employer] Services Not on file 03/01 Active Member of Clubs or Organizations Not on f ile 03/01/2024 Attends Club or Organization Meetings Not on romie e 03/01/2024 Marital Status Not on file 03/01/2024 PHQ-2 Answer Date Recorded PHQ-2 Score 0 08/24/2024 [facility] - Occupational [...] in an abandoned building, in an overnight senior care, or couch-surfing.) Yes 03/02/2024 Are you worried [...] Sex Assigned at Female 05/17/2019 12:19 PM PEN RULER OPERATOR Legal Sex Female 3:39 AM PEN RULER OPERATOR Gender Identity Female 05/17/2019 12:19 PM PEN RULER OPERATOR Sexual Orientation Straight 05/17/2019 12 :19 PM PEN RULER OPERATOR Last Filed Vital Signs Vital Sign Reading Time Taken Comments Blood Pressure 107/72 12/15/2024 7:34 AM CDT Pulse 77 12/15/2024 7:34 AM CDT Temperature 36.7 C (98 F) 08/24/2024 8:57 AM PEN RULER OPERATOR Respiratory Rate 16 08/25/2024 11:00 AM PEN RULER OPERATOR Oxygen Saturation 99% 12/15/2024 7:34 AM CDT Inhaled Oxygen Concentration - - Weight 69.9 kg (154 lb) 08/25/2024 11:00 AM PEN RULER OPERATOR Height 167.6 cm (5' 6) 08/25/2024 11:00 AM PEN RULER OPERATOR Body Mass Index 24.86 08/25/2024 11:00 AM PEN RULER OPERATOR Plan of Treatment Health Maintenance Due Date Last Done Comments CT COLONOGRAPHY 1974 FIT 1974 FLEX SIG 1974 sDNA (Cologuard) 1974 ASTHMA ACTION PLAN 02/04/2018 02/04/2017, 0 02/04/2017, 02/04/2017, Additional history exists PNEUMOCOCCAL VACCINE 50+ YEARS (2 of 2 - PCV) 12/28/2021 12/28/2020 ZOSTER VACCINE (1 of 2) 2024 ASTHMA CONTROL TEST 02/21/2025 08/24/2024, 03/02/2024, 11/28/2023, Additional history exists COVID-19 VACCINE ( season) 2025 02/06/2022, 11/10/2020, 10/20/2020 INFLUENZA VACCINE (#1) 2025 , 04/24/2021, 08/03/2020, Additional history exists ANNUAL REVIEW OF HM ORDERS 03/02/202503/02, 02/28/2023, 02/06/2022, Additional history exists YEARLY PREVENTIVE VISIT 03/02/2025 03/02/20, 02/28/2023, 02/06/2022, Additional history exists LIPID 12/04/2025 12/04/2020, 12/18/2015 MAMMO SCREENING 07/16/2026 07/16/2024, 010 02/2025, 04/10/2023, Additional history exists DIABETES SCREENING 11/03/2026 11/04/2023, 0 11/04/2023, 02/06/2022, Additional history exists HPV FOLLOW-UP 03/02/2027 03/02/2024, 09/0 06/2022, 02/06/2022, Additional history exists PAP FOLLOW-UP 03/02/2027 03/02/2024, 09/0 08/2023, 02/28/2023, Additional history exists COLONOSCOPY 08/07/2027 08/07/2022, 01/0 02/2020, 07/08/2019, Additional history exists COLORECTAL CANCER SCREENING 08/07/2027 ADVANCE CARE PLANNING 03/02/2029 03/02/2024 , 01/08/2021, 12/28/2020 (Declined) DTAP/TDAP/TD VACCINE (4 - Td or Tdap) 08/24/2034 08/24/2024, 04/08/2014, 12/20/2005 HEPATITIS C SCREENING Completed 12/28/2020 HIV SCREENING Completed 12/28/2020, 10/26/2013 PAP Discontinued 03/02/2024, 09/0 08/2023, 02/28/2023, Additional history exists PHQ-2 (once per calendar year) Completed 08/24/2024, 03/02/2024, 11/28/2023, Additional history exists HEPATITIS B VACCINE Discontinued HPV VACCINE (No Doses Required) Completed MENINGITIS VACCINE Aged Out No longer eligible based on patient's age to complete this topic Procedures Procedure Name Priority Date/Time Associated Diagnosis Comments MA DIAGNOSTIC LEFT W/ MARVEL Routine 07/16/2024 8:13 AM PEN RULER OPERATOR Abnormal mammogram HPV AND GYNECOLOGIC CYTOLOGY PANEL Routine 03/02/2024 8:48 AM CDT Cervical cancer screening HEMOGLOBIN A1C Routine 11/04/2023 3:50 PM CDT Other fatigue COLONOSCOPY - HIM SCAN 08/07/2022 12:00 AM PEN RULER OPERATOR HIV ANTIGEN ANTIBODY COMBO Routine 12/28/2020 4:35 PM CDT Screening for HIV (human immunodeficiency virus) HEPATITIS C SCREEN REFLEX TO HCV RNA QUANT AND GENOTYPE Routine 12/28/2020 4:35 PM CDT Need for hepatitis C screening test LIPID REFLEX TO DIRECT LDL PANEL Routine 12/04/2020 3:27 PM CDT Encounter for gynecological examination (general) (routine) without abnormal findings ASTHMA ACTION PLAN Routine 02/04/2017 1: 25 PM CDT Mild intermittent asthma without complication from Last 3 Months or Most Recently Relevant to Health Maintenance Results * MA Diagnostic Left w/Marvel (07/16/2024 8:13 AM PEN RULER OPERATOR) Anatomical Region Laterality Modality Breast Bilateral Mammography Impressions 07/16/2024 8:19 AM PEN RULER OPERATOR IMPRESSION: BI-RADS CATEGORY: 2 - Benign. RECOMMENDED FOLLOW-UP: Routine yearly mammography beginning at age 40 or as discussed with your provider. The results and recommendation were communicated to the patient at the conclusion of today's appointment. RUFINA MUELLER MD Narrative 07/16/2024 8:19 AM PEN RULER OPERATOR DIAGNOSTIC MAMMOGRAM, LEFT, DIGITAL w/CAD AND TOMOSYNTHESIS - 07/16/2024 8:13 AM ULTRASOUND LEFT BREAST HISTORY: Call back for mass seen in the left breast on recent screening mammogram. COMPARISON: Screening mammogram dated July 08, 2024. BREAST DENSITY: The breasts are heterogeneously dense, which may obscure small masses. FINDINGS: Additional mammographic views confirms the presence of an oval mass in the left superior breast. Targeted ultrasound evaluation of the left breast at 12:00 3 cm from the nipple demonstrates a 2.4 cm cyst, corresponding with the mammographic finding. Additional cysts are seen in the adjacent soft tissues, including a 1:00 retroareolar cyst measuring 3.1 cm in maximal diameter. us Rut Carr APRN, CNP IMG MAMMOGRAPHY ORDERABL ES Final Result * HPV and Gynecologic Cytology Panel - Recommended Age 30 - 65 Years (03/02/2024 8:48 AM CDT) Human Papilloma Virus 16 DNA Negative Negative 03/03/2024 4:43 PM CDT [facility] Human Papilloma Virus 18 DNA Negative Negative 03/03/2024 4:43 PM CDT [facility] Human Papilloma Virus Other Negative Negative 03/03/2024 4:43 PM CDT [facility] FINAL DIAGNOSIS This patient's sample is negative for high risk HPV DNA. METHODOLOGY: The [employer] system uses automated extraction, simultaneous amplification of HPV (E6/E7 oncogenes) and beta-globin, followed by real time detection of fluorescent labeled HPV and beta globin using specific oligonucleotide probes. The test specifically identifies types HPV 16 DNA and HPV 18 DNA while concurrently detecting the rest of the high risk types (31, 33, 35, 39, 45, 51, 52, 56, 58, 59, 66 or 68). COMMENTS: This test is not intended for use as a screening device for woman under age 30 with normal cervical cytology. Results should be correlated with cytologic and histologic findings. Close clinical follow up is recommended. Please see the separate Gynecologic Cytology (Pap) report from the same collection date. 03/03/2024 4:43 PM CDT [facility]NOST[facility] Brushing ENDOCERVICAL STRUCTURE / Unknown Non-blood Collection / Unknown 03/02/2024 8:48 AM CDT 03/02/2024 9:11 AM CDT us Rut Carr APRN, CNP LAB - BLOOD ORDERABLES F inal Result [facility] Specialty Lab [address] [facility] [address], [address] [place] [address], [facility] MOLECULAR DIAGNOSTICS Molecular Diagnostics [address] [facility] [address], [address] [place] [address], [facility] * Hemoglobin A1c (11/04/2023 3:50 PM CDT) Hemoglobin A1C 5.4 0.0 - 5.6 % 11/04/2023 4:01 PM CDT [facility] Comment: Normal <5.7% Prediabetes 5.7-6.4% Diabetes 6.5% or higher Note: Adopted from ADA consensus guidelines. Blood BLOOD SPECIMEN / Unknown Venipuncture / Unknown 11/04/2023 3:50 PM CDT 11/04/2023 3:50 PM CDT us Maurisio Kan MD LAB - BLOOD ORDERABLES Final Res ult LAB[facility]AT[facility] [address] [facility] (no room number, 1st floor of clinic) [place] [address], [facility] [phone] * COLONOSCOPY - HIM SCAN (08/07/2022 12:00 AM PEN RULER OPERATOR) 08/07/2022 us Provider Outside PROCEDURES Final Result * HIV Antigen Antibody Combo (12/28/2020 4:35 PM CDT) HIV Antigen Antibody Combo Nonreactive NR^Nonrea ctive 12/29/2020 5:51 PM CDT [facility] Comment:HIV-1 p24 Ag & HIV-1 /HIV-2 Ab Not Detected Blood 12/28/2020 4:35 PM CDT 12/28/2020 4:36 PM CDT us Sissy Robison MD LAB - BLOOD ORDERABLES Final Result [facility] [address] [place] [address] * Hepatitis C Screen Reflex to HCV RNA Quant and Genotype (12/28/2020 4:35 PM CDT) Hepatitis C Antibody Nonreactive NR^Nonre active 12/29/2020 5:53 PM CDT [facility] Comment: Assay performance characteristics have not been established for newborns, infants, and children Blood 12/28/2020 4:35 PM CDT 12/28/2020 4:36 PM CDT us Sissy Robison MD LAB - BLOOD ORDERABLES Final Result [facility] [address] [place] [address] * (ABNORMAL) Lipid panel reflex to direct LDL Non-fasting (12/04/2020 3:27 PM CDT) Pathologist [facility] Cholesterol 153 <200 mg/dL 12/05/2020 1:16 PM CDT [facility] Triglycerides 151(H) <150 mg/dL 12/05/2020 1:16 PM CDT [facility] Comment: Borderline high: 150-199 mg/dl High: 200-499 mg/dl Very high: >499 mg/dl Fasting specimen HDL Cholesterol 60 >49 mg/dL 1:16 PM CDT [facility] LDL Cholesterol Calculated 63 <100 mg/dL 12/05/2020 1:16 PM CDT [facility] Comment:Desirable: <100 mg/d l Non HDL Cholesterol 93 <130 mg/dL 12/05/2020 1:16 PM CDT [facility] Blood 12/04/2020 3:27 PM CDT 12/04/2020 3:28 PM CDT us Cristina Ace DO LAB - BLOOD ORDERABLES Fi nal Result [facility] [address] [place] [address], [facility] [phone] from Last 3 Months or Most Recently Relevant to Health Maintenance [place] Care Teams Fur Blower Operator Relationship Specialty Start Date End Date Rut Carr APRN PUBLIC WORKS TECHNICIAN [address] [place] [address] Assigned PCP 07/06/22 Valencia Mccormick DO [address] [place] [address] Assigned Neuroscience Provider 06/21/24 [facility] [address] [facility] [address] [place] [address] Assigned Surgical Provider 09/19/24
--- OUTSIDE RECORDS SUMMARY | 2025-04-29 01:43 | XMS_ITS | Encounter Summary ---
Author Organization [employer] Address [address] [place] [address] Care Team Providers Care Showroom Sales Consultant Name Role Phone Sissy Robison MD Primary Care Provider Rut Carr APRN COAL YARD SUPERVISOR Unavailable + Rut Carr APRN COAL YARD SUPERVISOR Unavailable + Sissy Robison MD Unavailable + Critsina Ace DO Unavailable [phone] Rut Carr APRN COAL YARD SUPERVISOR Unavailable + Sissy Robison MD Unavailable + Alejandro Grimes DPM Unavailable [phone] Rut Carr APRN COAL YARD SUPERVISOR Unavailable + Alejandro Grimes DPM Unavailable [phone] Valencia Mccormick DO Unavailable [phone] Nat Nunes MD Unavailable [phone] Reason for Visit * Reason Onset Date Comments Medication Refill 07/17/2018 escitalopram ( LEXAPRO) 10 MG tablet Encounter Details Date Type Department Care Team (Late st Contact Info) Description 07/17/2018 Refill [facility] [address] [facility], [address] [place] [address] Rut Carr, GLOBAL COMPENSATION MANAGER COAL YARD SUPERVISOR [address], [place] [id number] Medication Refill (escitalopram (LEXAPRO) 10 MG tablet) Social History Tobacco Use Types Packs/Day Years Used Date Smoking Tobacco: Never Smokeless Tobacco: Never Alcohol Use Standard Drinks/Week Comments Yes 0 (1 standard drink = 0.6 oz pur e alcohol) occasionally PHQ-2 Answer Date Recorded PHQ-2 Score 0 07/07/2018 Comments No Sex and Gender Information Value Date Recorded Sex Assigned at Female 05/17/2019 12:19 PM PSYCHODRAMATIST Legal Sex Female 3:39 AM PSYCHODRAMATIST Gender Identity Female 05/17/2019 12:19 PM PSYCHODRAMATIST Sexual Orientation Straight 05/17/2019 12 :19 PM PSYCHODRAMATIST documented as of this encounter Miscellaneous Notes * Telephone Encounter - Hilary Moya RN - 07/20/2018 7:54 AM CST Prescription approved per [facility] Refill Protocol. Hilary Moya RN HODRAMATIST * Telephone Encounter - Lani Chacon - 07/17/2018 4:16 PM CST Requested Prescriptions Pending Prescriptions Disp Refills ??? escitalopram (LEXAPRO) 10 MG tablet [Pharmacy Med Name: ESCITALOPRAM 10MG TABLETS] 30 tablet 0 Last Written Prescription Date: 06/16/18 END:06/16/19 Last Fill Quantity: 30, # refills: 0 Last Office Visit: 04/21/2018 Future Office Visit: Sig: TAKE 1 TABLET(10 MG) BY MOUTH DAILY SSRIs Protocol Passed - 07/17/2018 3:46 PM PHQ-9 SCORE 05/20/2016 07/29/2016 04/21/2018 PHQ-9 Total Score 2 1 2 BRIAN-7 SCORE 05/20/2016 07/29/2016 04/21/2018 Total Score 3 2 2 Passed - Recent (12 mo) or future (30 days) visit within the authorizing provider's specialty Patient had office visit in the last 12 months or has a visit in the next 30 days with authorizing provider or within the authorizing provider's specialty. See Patient Info tab in inbasket, or Choose Columns in Meds & Orders section of the refill encounter. Passed - Medication is active on med list Passed - Patient is age 18 or older Passed - No active on record Passed - No positive test in last 12 months HODRAMATIST documented in this encounter Plan of Treatment Not on file documented as of this encounter Visit Diagnoses Diagnosis Anxiety Anxiety state, unspecified documented in this encounter Additional Health Concerns Assessment Noted Time PHQ-9 Depression Total Score: 2 04/22/20 18 7:17 AM CDT documented as of this encounter Care Teams Showroom Sales Consultant Relationship Specialty [place] [address] [address] [id number] PCP - General Family Practice 12/18/15 01/04/25 Rut Carr APRN COAL YARD SUPERVISOR [address] [address] [address] PCP - Assigned PCP 05/03/18 09/01/18 Rut Carr APRN COAL YARD SUPERVISOR [address] [address] [address] Assigned PCP 05/03/18 10/30/19 [place] [address] [address] [address] Assigned PCP 10/31/19 10/14/20 Cristina Ace DO Tiff Wilson [address] [address] Assigned OBGYN Provider 04/21/20 3 Rut Carr APRN COAL YARD SUPERVISOR [address] [place] [address] Assigned PCP 10/15/20 01/11/21 [place] [address] [place] [address] Assigned PCP 01/12/21 07/05/22 [place]PM [address] [place] [address] Assigned Musculoskeletal Provider 04/29/21 08/02/22 Rut Carr APRN COAL YARD SUPERVISOR [address] [place] [address] Assigned PCP 07/06/22 Alejandro Grimes DPM [address] [place], [place] [address] Assigned Surgical Provider 08/03/22 Valencia Mccormick DO [address] [place] [address] Assigned Neuroscience Provider 06/21/24 Nat Nunes MD [address] [facility] [address] [place], [place] [address] Assigned Surgical Provider 09/19/24 documented as of this encounter
--- OUTSIDE RECORDS SUMMARY | 2025-04-29 01:43 | XMS_ITS | Encounter Summary ---
Author Organization [facility] Address [address] [place] [address] Care Team Providers Care Sliver Lapper Name Role Phone Sissy Robison MD Primary Care Provider + Rut Carr APRN MANAGER CONSUMER Unavailable + Sissy Robison MD Unavailable + Rut Carr APRN MANAGER CONSUMER Unavailable + Sissy Robison MD Unavailable + Cristina Ace DO Unavailable [phone] Rut Carr APRN MANAGER CONSUMER Unavailable + Sissy Robison MD Unavailable + Alejandro Grimes DPM Unavailable [phone] Rut Carr APRN MANAGER CONSUMER Unavailable + Alejandro Grimes DPM Unavailable + [phone] Valencia Mccormick DO Unavailable [phone] Nat Nunes MD Unavailable [phone] Reason for Visit * Reason Onset Date Comments Results 11/27/2016 Colposcopy Encounter Details Date Type Department Care Team (Late st Contact Info) Description 11/27/2016 [facility] [id number] [place] [address], [address] [place] [phone] [place] [address] [address] [id number] Results (Colposcopy) Social History Tobacco Use Types Packs/Day Years Used Date Smoking Tobacco: Never Alcohol Use Standard Drinks/Week Comments Yes 0 (1 standard drink = 0.6 oz pur e alcohol) occasionally Comments No Sex and Gender Information Value Date Recorded Sex Assigned at Female 05/17/2019 12:19 PM PRECISION MACHINE OPERATOR Legal Sex Female 3:39 AM PRECISION MACHINE OPERATOR Gender Identity Female 05/17/2019 12:19 PM PRECISION MACHINE OPERATOR Sexual Orientation Straight 05/17/2019 12 :19 PM PRECISION MACHINE OPERATOR documented as of this encounter Plan of Treatment Not on file documented as of this encounter Visit Diagnoses Not on filedocumented in this encounter Additional Health Concerns Assessment Noted Time PHQ-9 Depression Total Score: 1 07/30/19 17 7:12 AM PRECISION MACHINE OPERATOR documented as of this encounter Care Teams Sliver Lapper Relationship Specialty [place] [address] [address] [address] PCP - General Family Practice 12/18/15 01/04/25 Rut Carr APRN MANAGER CONSUMER [address] [address] [address] [address] PCP - Assigned PCP 05/03/18 09/01/18 [place] [address] [address] [address] PCP - Assigned PCP 03/29/18 05/02/18 Rut Carr APRN MANAGER CONSUMER [address] [address] [address] Assigned PCP 05/03/18 10/30/19 [place] [address] [place] [address] Assigned PCP 10/31/19 10/14/20 Cristina Ace DO [address] [facility] [address] [place] [address] Assigned OBGYN Provider 04/21/20 3 Rut Carr APRN MANAGER CONSUMER [address] [place] [address] Assigned PCP 10/15/20 01/11/21 [place] [address] [place] [address] Assigned PCP 01/12/21 07/05/22 [place] [address] [place] [address] Assigned Musculoskeletal Provider 04/29/21 08/02/22 Rut Carr APRN MANAGER CONSUMER [address] [place] [address] Assigned PCP 07/06/22 Alejandro Grimes DPM [address] [place] [address] Assigned Surgical Provider 08/03/22 Valencia Mccormick DO [address] [place] [id number] Assigned Neuroscience Provider 06/21/24 [facility] [address] [facility] [address] [place] [address] Assigned Surgical Provider 09/19/24 documented as of this encounter
--- OUTSIDE RECORDS SUMMARY | 2025-04-29 01:43 | XMS_ITS | Encounter Summary ---
Author Organization [facility] Address [address] [place] [address] Care Team Providers Care Material Mixer Name Role Phone Sissy Robison MD Primary Care Provider Rut Carr APRN POULTRY FARM LABORER Unavailable + Sissy Robison MD Unavailable + Cristina Ace DO Unavailable [phone] Rut Carr APRN POULTRY FARM LABORER Unavailable + Sissy Robison MD Unavailable + Alejandro Grimes DPM Unavailable [phone] Rut Carr APRN P[employer] FARM LABORER Unavailable + CornelioAlejandro galan DPM Unavailable + [phone] Valencia Mccormick DO Unavailable [phone] Nat Nunes MD Unavailable [phone] Reason for Visit * Reason Onset Date Comments Refill Request 09/14/2018 buPROPion (WELLB UTRIN XL) 150 MG 24 hr tablet Encounter Details Date Type Department Care Team (Late st Contact Info) Description 09/14/2018 MyC Refill [address], [address] [place] [address] Rut Carr APRN P[employer] FARM LABORER [address] [place] [address] Refill Request (buPROPion (WELLBUTRIN XL) ... Social History Tobacco Use Types Packs/Day Years Used Date Smoking Tobacco: Never Smokeless Tobacco: Never Alcohol Use Standard Drinks/Week Comments Yes 0 (1 standard drink = 0.6 oz pur e alcohol) occasionally PHQ-2 Answer Date Recorded PHQ-2 Score 0 07/07/2018 Comments No Sex and Gender Information Value Date Recorded Sex Assigned at Female 05/17/2019 12:19 PM EMPLOYMENT LEGAL ASSISTANT Legal Sex Female 3:39 AM EMPLOYMENT LEGAL ASSISTANT Gender Identity Female 05/17/2019 12:19 PM EMPLOYMENT LEGAL ASSISTANT Sexual Orientation Straight 05/17/2019 12 :19 PM EMPLOYMENT LEGAL ASSISTANT documented as of this encounter Miscellaneous Notes * Telephone Encounter - Hilary Moya RN - 09/18/2018 9:08 AM CDT Patient had an e-visit with Rut 09/16/2018. Hilary Moya RN * Telephone Encounter - Valencia Patrick RN - 09/16/2018 5:37 PM CDT Instructed to make appt Was to f/u 1 month after virtual visit 1.16.19 Valencia Patrick RN, BS Clinical Nurse Triage. * Telephone Encounter - Matthew Canas - 09/16/2018 9:31 AM CDT Requested Prescriptions Pending Prescriptions Disp Refills ??? buPROPion (WELLBUTRIN XL) 150 MG 24 hr tablet 30 tablet 1 Last Written Prescription Date: 07/15/2018 Last Fill Quantity: 30 tablet, # refills: 1 Last office visit: 04/21/2018 with prescribing provider: 07/15/2018 Future Office Visit: Sig: Take 1 tablet (150 mg) by mouth every morning SSRIs Protocol Passed - 09/15/2018 10:07 AM Passed - Recent (12 mo) or future [...] the refill encounter. Passed - Medication is Bupropion If the medication is Bupropion (Wellbutrin), and the patient is taking for smoking cessation; OK torefill. Passed - Medication is active on med list Passed - Patient is age 18 or older Passed - No active on record Passed - No positive test in last 12 months Matthew Canas XRT documented in this encounter Plan of Treatment Not on file documented as of this encounter Visit Diagnoses Diagnosis PMS (premenstrual syndrome) Premenstrual tension syndromes Anxiety Anxiety state, unspecified documented in this encounter Additional Health Concerns Assessment Noted Time PHQ-9 Depression Total Score: 2 04/22/20 18 7:17 AM CDT documented as of this encounter Care Teams Material Mixer Relationship Specialty [place] [id number] [address] [id number] PCP - General Family Practice 12/18/15 01/04/25 Rut Carr APRN CNP [id number] [address] [id number] Assigned PCP 05/03/18 10/30/19 [place] [address] [address] [id number] Assigned PCP 10/31/19 10/14/20 Cristina Ace DO Tiff E Steve [address] [address] Assigned OBGYN Provider 04/21/20 2 3 Rut Carr APRN [employer] F[employer]ORER [address] [place] [address] Assigned PCP 10/15/20 01/11/21 [place] [address] [place] [address] Assigned PCP 01/12/21 07/05/22 Alejandro Grimes DPM [id number] [employer] [address] [place] [address] Assigned Musculoskeletal Provider 04/29/21 08/02/22 Rut Carr APRN [employer] F[employer]ORER [address] [place] [address] Assigned PCP 07/06/22 Alejandro Grimes DPM [address] [employer] [address] [place] [address] [id number] Assigned Surgical Provider 08/03/22 Valencia Mccormick DO [address] [place] [address] [id number] Assigned Neuroscience Provider 06/21/24 Nat Nunes MD [address] [facility] [address] [place], [place] [address] Assigned Surgical Provider 09/19/24 documented as of this encounter
--- OUTSIDE RECORDS SUMMARY | 2025-04-29 01:43 | XMS_ITS | Encounter Summary ---
Author Organization [facility] Address [address] [place] [address] Care Team Providers Care Credit Office Manager Name Role Phone Sissy Robison MD Primary Care Provider + Rut Carr APRN FISH SKINNING MACHINE FEEDER Unavailable + Sissy Robison MD Unavailable + Cristina Ace DO Unavailable [phone] Rut Carr APRN FISH SKINNING MACHINE FEEDER Unavailable + Sissy Robison MD Unavailable + Alejandro Grimes DPM Unavailable + [phone] Rut Carr APRN FISH SKINNING MACHINE FEEDER Unavailable + CornelioAlejandro galan DPM Unavailable + [phone] Valencia Mccormick DO Unavailable [phone] Nat Nunes MD Unavailable [phone] Encounter Details Date Type Department Care Team (Late st Contact Info) Description 09/28/2019 MyC Medical Advice [facility], [address] [place] [address] Rosangela Schwartz, INFORMATION AND REFERRAL DIRECTOR Social History Tobacco Use Types Packs/Day Years Used Date Smoking Tobacco: Never Smokeless Tobacco: Never Alcohol Use Standard Drinks/Week Comments Yes 0 (1 standard drink = 0.6 oz pur e alcohol) occasionally PHQ-2 Answer Date Recorded PHQ-2 Score 0 07/07/2018 Comments No Sex and Gender Information Value Date Recorded Sex Assigned at Female 05/17/2019 12:19 PM STEWARD/STEWARDESS THIRD Legal Sex Female 3:39 AM STEWARD/STEWARDESS THIRD Gender Identity Female 05/17/2019 12:19 PM STEWARD/STEWARDESS THIRD Sexual Orientation Straight 05/17/2019 12 :19 PM STEWARD/STEWARDESS THIRD documented as of this encounter Plan of Treatment Not on file documented as of this encounter Visit Diagnoses Not on filedocumented in this encounter Additional Health Concerns Assessment Noted Time PHQ-9 Depression Total Score: 5 04/11/20 25 9:20 AM CDT documented as of this encounter Care Teams Credit Office Manager Relationship Specialty [place] [id number] [address] [id number] PCP - General Family Practice 12/18/15 01/04/25 Rut Carr APRN FISH SKINNING MACHINE FEEDER [address] [address] [id number] Assigned PCP 05/03/18 10/30/19 [place] [address] [address] [id number] Assigned PCP 10/31/19 10/14/20 Cristina Ace DO [address] [address] Assigned OBGYN Provider 04/21/20 3 Rut Carr APRN FISH SKINNING MACHINE FEEDER [address] [address] [address] Assigned PCP 10/15/20 01/11/21 [place] [address] [place] [address] Assigned PCP 01/12/21 07/05/22 Alejandro Grimes DPM [id number] [place] [address] Assigned Musculoskeletal Provider 04/29/21 08/02/22 Rut Carr APRN [facility] [address] [place] [address] Assigned PCP 07/06/22 Alejandro Grimes DPM [id number] [place] [address] Assigned Surgical Provider 08/03/22 Valencia Mccormick DO [address] [place], [place] 57[address] Assigned Neuroscience Provider 06/21/24 Nat Nunes MD [address] [facility] [address] [place], [place] [address] Assigned Surgical Provider 09/19/24 documented as of this encounter
[2025-04-29 02:12] VITALS: TEMP 36.9
[2025-04-29 02:13] VITALS: BP 121/70; PULSE 70; RESP 18; TEMP 36.9; O2SAT 99
[2025-04-29] MEDS: OxyCODONE/APAP 5-325 TABLET 2 TAB PO (02:13)
[2025-04-29 02:14] VITALS: BP 121/70; PULSE 70; RESP 18; TEMP 36.9
== END 2025-04-29 02:15 | disposition home or self-care (01) ==
PROVIDERS: Emergency Provider Family Medicine
DX: M75.91 Shoulder lesion, unspecified, right shoulder (principal)
CPT/HCPCS: 73030; 96372; 99282; 99283; 99284; A9270; J1885